=== PATIENT | female | born 1940 | race African-American/Black ===

== ENCOUNTER 2018-01-14 11:46 | Emergency (ER) | payer MEDICARE, BC ==
[2018-01-14 13:26] LABS: Hemoglobin 8.6 g/dL (12.0-16.0); Mean Corpuscular Hemoglobin 25.5 pg (27.0-31.0); Mean Corpuscular Volume 77.2 fl (81.0-99.0); Platelet Count 409 thou/uL (130-400); RBC Distribution Width 19.8 % (11.5-14.5); Red Blood Cell (RBC) Count 3.37 mill/uL (4.20-5.40); White Blood Cell (WBC) Count 8.2 thou/uL (4.8-10.8)
[2018-01-14 13:36] LABS: #Basophils 0.1 thou/uL (0.0-0.2); #Eosinphils 0.1 thou/uL (0.0-0.7); #Lymphocytes 1.1 thou/uL (1.20-3.40); #Monocytes 0.6 thou/uL (0.11-0.59); #Neutrophils 6.3 thou/uL (1.40-6.50); %Basophils 1.4 % (0.0-1.0); %Eosinophils 1.1 % (0.0-10.0); %Lymphocytes 13.5 % (21.0-51.0); %Monocytes 7.2 % (0.0-10.0); %Neutrophils 76.8 % (42.0-75.0); Hypochromia SLIGHT = 6-15 cells (100X) (0-5/hpf); MDiff Complete? YES; Macrocytosis SLIGHT = 6-15 cells (100X) (0-5/hpf); Microcytosis MODERATE=15-30 cells (100X) (0-5/hpf)
[2018-01-14 13:37] LABS: ALT (SGPT) 18 U/L (8-55); AST (SGOT) 45 U/L (5-34); Albumin 2.3 g/dL (3.4-4.8); Alkaline Phosphatase 128 U/L (40-150); Anion Gap 11 mmol/L (10-20); BUN (Urea Nitrogen) 21 mg/dL (9.8-20.1); Bilirubin, Total 0.7 mg/dL (0.2-1.2); Calc. Creatinine Clearance 0 mL/min (70-130); Calcium 8.6 mg/dL (7.8-10.44); Carbon Dioxide 26 mmol/L (23-31); Chloride 106 mmol/L (98-107); Estimated GFR-MDRD 36; Globulin 5.9 g/dL (2.4-3.5); Glucose 101 mg/dL (83-110); Potassium 3.9 mmol/L (3.5-5.1); Protein, Total 8.2 g/dL (6.0-8.3); Sodium 139 mmol/L (136-145)
[2018-01-14 13:42] LABS: CKMB 8.6 ng/mL (0-6.6); Troponin I 1.022 ng/mL (< 0.028)
[2018-01-14] MEDS ORDERED: Enoxaparin Sodium 100 MG/ML SYRINGE ONE (13:51)
[2018-01-14] MEDS ORDERED: Furosemide 40 MG TAB ONE (14:28)
[2018-01-14] MEDS ORDERED: Furosemide 40 MG/4 ML VIAL ONE (14:29)
--- NOTE | 2018-01-14 21:14 | RAD ---
CHEST TWO VIEWS: 01/14/18 Comparison is made with the 10/12/11 study. The heart is mildly enlarged and perhaps slightly larger than before. The vasculature seems slightly prominent today, though I am not sure I would go so far as to say there is definite congestive failur e. No large effusions are seen. Arteriosclerotic change is seen in the aorta. Degenerative changes ar e present in the spine. The films are somewhat light so it is difficult to assess the retrocardiac ar ea on this particular study. IMPRESSION: 1. Cardiomegaly and arteriosclerosis. Heart size slightly larger than 2011. 2. Questionable mild prominence of the vasculature. POS: HOME
== END 2018-01-14 17:21 | disposition short-term general hospital (02) ==
LOC: BURERS 11:46
DX: I21.4 Non-ST elevation (NSTEMI) myocardial infarction (principal); I11.0 Hypertensive heart disease with heart failure; I50.9 Heart failure, unspecified; D50.9 Iron deficiency anemia, unspecified; R79.1 Abnormal coagulation profile; E78.5 Hyperlipidemia, unspecified; I25.10 Atherosclerotic heart disease of native coronary artery without angina pectoris; F41.9 Anxiety disorder, unspecified; F32.9 Major depressive disorder, single episode, unspecified; Z79.82 Long term (current) use of aspirin; Z79.899 Other long term (current) drug therapy; Z79.02 Long term (current) use of antithrombotics/antiplatelets
CPT/HCPCS: 36415; 71046; 80053; 82553; 83880; 84484; 85025; 85379; 93005; 94760; 96361; 96372; 96374; J1650; J1940